=== PATIENT | male | born 1960 | race Two or more races ===

== ENCOUNTER → 2024-10-18 | Outpatient (CLI) | payer OTHER, SELFPAY ==
--- NOTE | 2024-10-18 16:10 | XR_ITS ---
Examination: PA lateral chest 2 views Technique: Upright PA lateral chest 2 views Exam date and time: October 18, 2024 1621 hrs. Comparison November 23, 2015 Indications: Coughing congestion bronchitis 4 days. Findings: Normal heart size Mild pneumonia in the lingular segment left upper lobe Right lung clear The osseous structures are intact Impression: Mild pneumonia lingular segment left upper lobe
[2024-10-18 17:54] LABS: Glucose Estimated Average 212 mg/dL (80-131)
== END | disposition home or self-care (01) ==
LOC: CDIM 16:02 → COPL 16:28
PROVIDERS: Referring Provider Family Medicine; Visit Provider Radiology Diagnostic Radiology
DX: J18.9 Pneumonia, unspecified organism (principal); E11.9 Type 2 diabetes mellitus without complications
CPT/HCPCS: 36415; 71046; 83036